=== PATIENT | female | born 1955 | race American Indian/Alaskan Native ===

== ENCOUNTER 2017-02-17 10:36 | Outpatient (CLI) | payer MEDICARE ==
--- NOTE | 2017-02-17 11:10 | Mammography Report ---
Bilateral mammogram: Compared to 01/17/16. CAD study utilized. Findings: Scattered glandular parenchyma bilaterally. No distinct mass or microcalcification. Benign densities right and left breast with benign calcifications. Normal axilla. Impression: Benign findings. Annual followup recommended. BI-RADS CATEGORY: 2 = Benign ACR BI-RADS MAMMOGRAPHIC CODES: 0 = Needs additional imaging evaluation; 1 = Negative; 2 = Benign; 3 = Probably benign; 4 = Suspicious; 5 = Malignant; 6 = Known biopsy-proven malignancy COMMENT: 1. Dense breast tissue, i.e., adenosis, fibrocystic changes, etc., may obscure an underlying neoplasm. 2. Approximately 10% of cancers are not detected with mammography. 3. A negative mammography report should not delay biopsy if a clinically suspicious mass is present. COMMENT: Patient follow-up letters are generated in [employer]. Benign findings. Annual followup recommended.
== END 2017-02-17 10:37 | disposition home or self-care (01) ==
LOC: MAMMO 10:36
PROVIDERS: ATTEND Internal Medicine
DX: Z12.31 Encounter for screening mammogram for malignant neoplasm of breast (principal); I11.0 Hypertensive heart disease with heart failure; I50.9 Heart failure, unspecified; J45.909 Unspecified asthma, uncomplicated; M06.9 Rheumatoid arthritis, unspecified
CPT/HCPCS: 77067; G0202

== ENCOUNTER → 2018-02-24 | Outpatient (CLI) | payer MEDICARE ==
--- NOTE | 2018-02-24 16:30 | Mammography Report ---
BILATERAL DIGITAL SCREENING MAMMOGRAM with CAD: 02/24/18 08:15:00 CLINICAL: Routine screening. COMPARISON:02/17/17 FINDINGS: The breasts are heterogeneously dense, which may obscure small masses. Right asymmetries require additional imaging.No architectural distortion or suspicious calcifications.The left breast is negative. IMPRESSION: Right asymmetries requiring further workup. BI-RADS CATEGORY: 0 -- Additional Imaging Evaluation Required RECOMMENDATION: Recall for right mediolateral , spot magnification CC and MLO views and right breast ultrasound if needed. ACR BI-RADS MAMMOGRAPHIC CODES: 0 = Needs additional imaging evaluation; 1 = Negative; 2 = Benign; 3 = Probably benign; 4 = Suspicious; 5 = Malignant; 6 = Known biopsy-proven malignancy COMMENT: 1. Dense breast tissue, i.e., adenosis, fibrocystic changes, etc., may obscure an underlying neoplasm. 2. Approximately 10% of cancers are not detected with mammography. 3. A negative mammography report should not delay biopsy if a clinically suspicious mass is present. COMMENT: Patient follow-up letters are generated via our [employer] application.
== END | disposition home or self-care (01) ==
LOC: MAMMO 08:15
DX: Z12.31 Encounter for screening mammogram for malignant neoplasm of breast (principal); I10 Essential (primary) hypertension; K21.9 Gastro-esophageal reflux disease without esophagitis; M19.90 Unspecified osteoarthritis, unspecified site; J45.909 Unspecified asthma, uncomplicated; F32.9 Major depressive disorder, single episode, unspecified; Z88.1 Allergy status to other antibiotic agents; Z88.0 Allergy status to penicillin; Z91.013 Allergy to seafood
CPT/HCPCS: 77067

== ENCOUNTER 2018-09-07 09:48 | Inpatient (IN) | payer MEDICARE ==
[2018-09-07 10:46] LABS: Basophils % (Auto) 0.5 % (0.0-1.8); Eosinophils # (Auto) 0.1 K/mm3 (0.0-0.4); Eosinophils % (Auto) 2.7 % (0.0-4.3); Lymphocytes # (Auto) 0.8 K/mm3 (1.2-5.4); Lymphocytes % (Auto) 15.2 % (13.4-35.0); Mean Corpuscular HGB Conc 31 % (30-34); Mean Corpuscular Volume 98 fl (79-97); Monocytes # (Auto) 0.5 K/mm3 (0.0-0.8); Monocytes % (Auto) 8.4 % (0.0-7.3); Platelet Count 288 K/mm3 (140-440); Red Blood Count 1.54 M/mm3 (3.65-5.03); Red Cell Distribution Width 16.3 % (13.2-15.2)
[2018-09-07 10:48] LABS: Hematocrit 15.1 % (30.3-42.9); Hemoglobin 4.7 gm/dl (10.1-14.3)
[2018-09-07 11:00] LABS: Albumin 3.1 g/dL (3.9-5); Calcium 7.9 mg/dL (8.4-10.2)
[2018-09-07] MEDS ORDERED: NACL 0.9% 500 ML 500 ML IV ONE (11:20)
[2018-09-07] MEDS ORDERED: KIONEX PO ONE (11:21)
--- NOTE | 2018-09-07 11:21 | Emergency Department Report ---
ED Medical Clearance HPI - General Chief complaint: Dyspnea/Respdistress Stated complaint: ABNORMAL LAB Time Seen by Provider: 09/07/18 11:12 Source: patient, RN notes reviewed, old records reviewed Mode of arrival: Ambulatory Limitations: No Limitations - History of Present Illness Initial comments: Primary care Dr.: Dr Foote Nephrology: Dr. Finnegan Past medical history: Renal insufficiency, hypertension, chronic anemia, has required blood transfusions in the past this is a 63-year-old female who was sent to the emergency room by her paper processing machine helper (she cannot recall his or her name) for symptomatic anemia, and packed red blood cell transfusion. The patient complains of mild shortness of breath which is painless. There is no hematemesis, there is no bright red blood per rectum. Has chronic lower extremity edema, which is neither new, worsening or different. She denies hematemesis, bright red blood per rectum. She denies DVT, pulmonary embolus risk factors. MD Complaint: medical clearance request Reason for Medical Clearance: laboratory abnormality Place: home Alledged Intoxication: No Compliant with Home Medications: Yes Traumatic Symptoms: denies traumatic injury Associated Symptoms: shortness of breath, other (lower extremity edema) Treatments Prior to Arrival: none Home medications: Home Medications Medication Instructions Recorded Confirmed Last Taken Aspirin [Aspirin BABY CHEW TAB] 81 mg PO DAILY 05/25/13 05/25/13 05/24/13 10:00 81mg Buspirone HCl 15 mg PO DAILY 05/25/13 05/25/13 05/24/13 10:00 15mg Ferrous Sulfate [Iron] 325 mg PO DAILY 05/25/13 05/25/13 05/24/13 10:00 325mg Furosemide 40 mg PO DAILY 05/25/13 05/25/13 05/24/13 10:00 40mg Naproxen 500 mg PO DAILY 05/25/13 05/25/13 05/24/13 10:00 500mg Omeprazole Magnesium [PriLOSEC Otc] 20 mg PO BID 05/25/13 05/25/13 05/24/13 21:00 20mg Potassium Chloride [Klor-Con 10] 10 meq PO DAILY 05/25/13 05/25/13 05/24/13 10:00 10meq Prednisone 5 mg PO DAILY 05/25/13 05/25/13 05/24/13 10:00 5mg Sertraline [Zoloft] 50 mg PO QDAY 05/25/13 05/25/13 05/24/13 10:00 50mg glipiZIDE [glipiZIDE ER] 5 mg PO DAILY 05/25/13 05/25/13 05/23/13 10:00 5mg Previous Rx's Medication Instructions Recorded Last Taken Type Albuterol Sulfate [Proventil HFA] 1 - 2 puff IH Q4H PRN #1 hfa.aer.ad 07/17/13 Unknown Rx Fluticasone Propionate [Flonase] 16 gm NS QDAY #1 spray.susp 07/17/13 Unknown Rx Loratadine [Claritin] 10 mg PO DAILY #20 tablet 07/17/13 Unknown Rx predniSONE [Deltasone] 20 mg PO BID #8 tablet 07/17/13 Unknown Rx Acetaminophen/Codeine [Tylenol #3] 1 tab PO TID PRN #21 tab 05/06/15 Unknown Rx Allergies/Adverse reactions: Allergies Allergy/AdvReac Type Severity Reaction Status Date / Time penicillin G Allergy Intermediate Shortness Verified 05/03/15 08:43 of Breath shellfish derived Allergy Intermediate Shortness Verified 05/03/15 08:43 of Breath hydrocodone AdvReac Headache Verified 05/06/15 06:38 ED Review of Systems ROS: Stated complaint: ABNORMAL LAB Other details as noted in HPI Constitutional: malaise Eyes: denies: vision change ENT: denies: epistaxis Respiratory: shortness of breath. denies: wheezing Cardiovascular: edema. denies: chest pain Gastrointestinal: denies: hematemesis, melena, hematochezia Genitourinary: denies: dysuria Musculoskeletal: denies: back pain Skin: denies: lesions Neurological: weakness Psychiatric: denies: depression ED Past Medical Hx - Past Medical History Hx Hypertension: Yes Hx Congestive Heart Failure: Yes Hx Diabetes: Yes Hx GERD: Yes Hx Arthritis: Yes Hx Asthma: Yes Hx Tuberculosis: Yes Additional medical history: ulcers. sleep apnea. anemia - Surgical History Additional Surgical History: cataract surgery - Social History Smoking Status: Never Smoker Substance Use Type: None - Medications Home Medications: Home Medications Medication Instructions Recorded Confirmed Last Taken Type Aspirin [Aspirin BABY CHEW TAB] 81 mg PO DAILY 05/25/13 05/25/13 05/24/13 10:00 History 81mg Buspirone HCl 15 mg PO DAILY 05/25/13 05/25/13 05/24/13 10:00 History 15mg Ferrous Sulfate [Iron] 325 mg PO DAILY 05/25/13 05/25/13 05/24/13 10:00 History 325mg Furosemide 40 mg PO DAILY 05/25/13 05/25/13 05/24/13 10:00 History 40mg Naproxen 500 mg PO DAILY 05/25/13 05/25/13 05/24/13 10:00 History 500mg Omeprazole Magnesium [PriLOSEC Otc] 20 mg PO BID 05/25/13 05/25/13 05/24/13 21:00 History 20mg Potassium Chloride [Klor-Con 10] 10 meq PO DAILY 05/25/13 05/25/13 05/24/13 10:00 History 10meq Prednisone 5 mg PO DAILY 05/25/13 05/25/13 05/24/13 10:00 History 5mg Sertraline [Zoloft] 50 mg PO QDAY 05/25/13 05/25/13 05/24/13 10:00 History 50mg glipiZIDE [glipiZIDE ER] 5 mg PO DAILY 05/25/13 05/25/13 05/23/13 10:00 History 5mg Albuterol Sulfate [Proventil HFA] 1 - 2 puff IH Q4H PRN #1 hfa.aer.ad 07/17/13 Unknown Rx Fluticasone Propionate [Flonase] 16 gm NS QDAY #1 spray.susp 07/17/13 Unknown Rx Loratadine [Claritin] 10 mg PO DAILY #20 tablet 07/17/13 Unknown Rx predniSONE [Deltasone] 20 mg PO BID #8 tablet 07/17/13 Unknown Rx Acetaminophen/Codeine [Tylenol #3] 1 tab PO TID PRN #21 tab 05/06/15 Unknown Rx ED Physical Exam - General Limitations: No Limitations General appearance: alert, in no apparent distress - Head Head exam: Present: atraumatic, normocephalic - Eye Eye exam: Present: normal appearance, EOMI. Absent: nystagmus - ENT ENT exam: Present: normal exam, normal orophraynx, mucous membranes moist, normal external ear exam - Neck Neck exam: Present: normal inspection, full ROM - Respiratory Respiratory exam: Present: normal lung sounds bilaterally, decreased breath sounds. Absent: respiratory distress, wheezes, rales, rhonchi, stridor - Cardiovascular Cardiovascular Exam: Present: regular rate, normal rhythm, normal heart sounds. Absent: bradycardia, tachycardia, irregular rhythm, systolic murmur, diastolic murmur, rubs, gallop - GI/Abdominal GI/Abdominal exam: Present: soft. Absent: distended, tenderness, guarding, rebound, rigid, pulsatile mass - Extremities Exam Extremities exam: Present: normal inspection, full ROM, pedal edema, other (2+ pulses noted in the bilateral upper, lower extremities. Compartments soft. No long bony tenderness. The pelvis is stable.). Absent: calf tenderness - Back Exam Back exam: Present: normal inspection, full ROM. Absent: tenderness, CVA tenderness (R), paraspinal tenderness, vertebral tenderness - Neurological Exam Neurological exam: Present: alert, oriented X3, CN II-XII intact, normal gait, other (Extraocular movements intact. Tongue midline. No facial droop. Facial sensation intact to light touch in the V1, V2, V3 distribution bilaterally. 5 and 5 strength in 4 extremities.. Sensation is intact to light touch in 4 extremities.). Absent: motor sensory deficit - Psychiatric Psychiatric exam: Present: normal affect, normal mood - Skin Skin exam: Present: warm, dry, intact, normal color. Absent: rash ED Course Vital Signs 09/07/18 09:55 Temperature 97.6 F Pulse Rate 89 Respiratory 16 Rate Blood Pressure 154/102 [Left] O2 Sat by Pulse 100 Oximetry ED Medical Decision Making - Lab Data Result diagrams: 09/07/18 10:20 09/07/18 10:20 Vital Signs 09/07/18 09:55 Temperature 97.6 F Pulse Rate 89 Respiratory 16 Rate Blood Pressure 154/102 [Left] O2 Sat by Pulse 100 Oximetry Lab Results 09/07/18 09/07/18 09/07/18 Range/Units 10:20 10:20 10:20 WBC 5.4 (4.5-11.0) K/mm3 RBC 1.54 L (3.65-5.03) M/mm3 Hgb 4.7 L* (10.1-14.3) gm/dl Hct 15.1 L* (30.3-42.9) % MCV 98 H (79-97) fl MCH 31 (28-32) pg MCHC 31 (30-34) % RDW 16.3 H (13.2-15.2) % Plt Count 288 (140-440) K/mm3 Lymph % (Auto) 15.2 (13.4-35.0) % [place] % (Auto) 8.4 H (0.0-7.3) % Eos % (Auto) 2.7 (0.0-4.3) % Baso % (Auto) 0.5 (0.0-1.8) % Lymph # 0.8 L (1.2-5.4) K/mm3 [place] # 0.5 (0.0-0.8) K/mm3 Eos # 0.1 (0.0-0.4) K/mm3 Baso # 0.0 (0.0-0.1) K/mm3 Seg Neutrophils % 73.2 H (40.0-70.0) % Seg Neutrophils # 3.9 (1.8-7.7) K/mm3 Sodium 140 (137-145) mmol/L Potassium 5.2 H (3.6-5.0) mmol/L Chloride 107.7 H (98-107) mmol/L Carbon Dioxide 20 L (22-30) mmol/L Anion Gap 18 mmol/L BUN 59 H (7-17) mg/dL Creatinine 2.7 H (0.7-1.2) mg/dL Estimated GFR 21 ml/min BUN/Creatinine Ratio 22 % Glucose 111 H (65-100) mg/dL Calcium 7.9 L (8.4-10.2) mg/dL Total Bilirubin 0.20 (0.1-1.2) mg/dL AST 14 (5-40) units/L ALT 8 (7-56) units/L Alkaline Phosphatase 55 (35-129) units/L Total Protein 7.0 (6.3-8.2) g/dL Albumin 3.1 L (3.9-5) g/dL Albumin/Globulin Ratio 0.8 % Blood Type A POSITIVE Antibody Screen Negative Crossmatch See Detail - EKG Data -: EKG Interpreted by Nc EKG shows normal: sinus rhythm Rate: normal - EKG Data When compared to previous EKG there are: previous EKG unavailable 09/07/18 12:19 Sinus, 95 bpm, left axis deviation, QTC prolonged, left anterior fascicular block, low voltage in the anteroseptal leads, motion artifact, abnormal EKG, this EKG is not consistent with ST elevation myocardial infarction. - Radiology Data Radiology results: pending, image reviewed interpreted by me: Pulmonary vascular congestion, enlarged cardiac silhouette, x-ray of the chest negative otherwise for acute disease. - Medical Decision Making Differential diagnosis, including limited to: Symptomatic anemia, chronic renal insufficiency, chronic lower extremity edema Assessment and plan: 63-year-old female with chronic renal insufficiency, who does not have crackles or rales, with chronic lower extremity edema, found to have anemia, hemoglobin of 4, hematocrit of 15. Patient is amenable to packed red blood cell transfusion. Given underlying renal insufficiency, evidence of lower extremity edema, patient will need to be transfused judiciously and slowly, and have fluid, respiratory reassessments, in conjunction with repeat assessments on hemoglobin, hematocrit. Discussed admission to the hospital with the patient, who is amenable to this plan of care, and I have discussed with her primary care doctor, Dr Foote, who is amenable to admitting the patient. ED Disposition Clinical Impression: Symptomatic anemia, CKD (chronic kidney disease) Disposition: DC-09 OP ADMIT IP TO THIS HOSP Is pt being admited?: Yes Condition: Good Referrals: PRIMARY CARE, [Primary Care Provider] - 3-5 Days Critical Care Time: Yes Critical care time in (mins) excluding proc time.: 35 Critical care attestation.: If time is entered above; I have spent that time in minutes in the direct care of this critically ill patient, excluding procedure time.
--- NOTE | 2018-09-07 14:16 | XRay Report ---
FINAL REPORT EXAM: XR CHEST 1V AP HISTORY: dyspnea TECHNIQUE: Chest, portable upright PRIORS: None. FINDINGS: There is mild cardiomegaly. There is no congestion, infiltrate or pleural effusion seen. The lungs ar e clear. There is no pneumothorax. IMPRESSION: Mild cardiomegaly. Otherwise no acute abnormality seen.
[2018-09-07 17:08] LABS: Hemoglobin 5.7 gm/dl (10.1-14.3)
[2018-09-07] MEDS ORDERED: D50W (25GM) Syringe IV PRN (19:20)
--- NOTE | 2018-09-07 19:31 | History and Physical Report ---
History of Present Illness Date of examination: 09/07/18 Date of admission: 09/07/18 12:02 Chief complaint: Shortness of breath Weakness Dizziness History of present illness: 63 year od female patient referred to the ER from her credit resolution representative office on account of low hemoglobin of 4.5 .Patient was referred for packed Red Blood cell Transfusion but patient has complaint of weakness and shortness of breath ongoing for the past few weeks . Patient was hospitalized at [facility] twice in June 2016 on account of low Hemoglobin when she received multiple transfusion with PRBCand had both upper and lower endoscopy done which did not reveal any definite source of GI bleeding , within two weeks of her initial hospitalization , she was readmitted to the same hospital for Hypoglycemia ,patient stated that she got better but developed progressive shortness of breath which started shortly following discharge after the second hospitalization at [facility] where she was evaluated and also treated for hyperkalemia complicating new o nset acute renal failure . Patient is currently on treatment for Type 2 Diabetes , Hypertension and Rheumatoid arthritis as well as chronic anemia and more recently acute on chronic renal failure with hyperkalemia . Patient being evaluated as outpatient for ongoing anemia and hemoglobin was noted to be markedly low at the Director Medical Economics office and now referred for further treatment including PRBC transfusion .Patient's potassium level was also noted to be elevated at 5.8 in the ER and she received treatment with Kayexalate and started on one unit of PRBC . Medications and Allergies Allergies Allergy/AdvReac Type Severity Reaction Status Date / Time penicillin G Allergy Intermediate Shortness Verified 05/03/15 08:43 of Breath shellfish derived Allergy Intermediate Shortness Verified 05/03/15 08:43 of Breath hydrocodone AdvReac Headache Verified 05/06/15 06:38 Home Medications Medication Instructions Recorded Confirmed Last Taken Type Aspirin [Aspirin BABY CHEW TAB] 81 mg PO DAILY 05/25/13 09/07/18 05/24/13 10:00 History 81mg Buspirone HCl 15 mg PO TID 05/25/13 09/07/18 05/24/13 10:00 History 15mg glipiZIDE [glipiZIDE ER] 5 mg PO BID 05/25/13 09/07/18 05/23/13 10:00 History 5mg Carvedilol [Coreg] 3.125 mg PO BID 09/07/18 09/07/18 Unknown History Cyanocobalamin (Vitamin B-12) 500 mcg PO DAILY 09/07/18 09/07/18 Unknown History [Vitamin B-12] Hydroxychloroquine [Plaquenil] 200 mg PO QDAY 09/07/18 09/07/18 Unknown History Omeprazole 40 mg PO DAILY 09/07/18 09/07/18 Unknown History predniSONE [Deltasone] 10 mg PO QDAY 09/07/18 09/07/18 Unknown History Active Meds: Active Medications Carvedilol (Coreg) 3.125 mg PO BID [facility] Dextrose (D50w (25gm) Syringe) 50 ml IV PRN PRN PRN Reason: Hypoglycemia Glipizide (Glucotrol Xl) 5 mg PO BID [facility] Hydroxychloroquine Sulfate (Plaquenil) 200 mg PO QDAY [facility] Miscellaneous Medication (Omeprazole [Omeprazole]) 40 mg PO DAILY [facility] Review of Systems Constitutional: fatigue, weakness Cardiovascular: palpitations, lightheadedness, shortness of breath, dyspnea on exertion, leg edema Respiratory: shortness of breath, dyspnea on exertion Gastrointestinal: excessive gas Musculoskeletal: low back pain, morning stiffness, arthritis Exam - Constitutional Vitals: Temp Pulse Resp BP Pulse Ox 98 F 88 20 127/67 100 09/07/18 13:04 09/07/18 16:16 09/07/18 16:16 09/07/18 16:16 09/07/18 16:16 General appearance: Present: no acute distress - EENT Eyes: Present: PERRL, EOM intact ENT: hearing intact, clear oral mucosa - Neck Neck: Present: supple, normal ROM - Respiratory Respiratory effort: normal Respiratory: bilateral: CTA - Cardiovascular Rhythm: regular Heart Sounds: Present: S1 & S2 - Extremities Extremities: pulses symmetrical (bilateral pitting edema ) Extremity abnormal: edema Peripheral Pulses: within normal limits - Abdominal General gastrointestinal: Present: soft, non-tender, non-distended, normal bowel sounds - Rectal Rectal Exam: deferred - Integumentary Integumentary: Present: warm, dry - Musculoskeletal Musculoskeletal: strength equal bilaterally - Psychiatric Psychiatric: appropriate mood/affect - Neurologic Neurologic: CNII-XII intact, moves all extremities Results - Labs CBC & Chem 7: 09/07/18 16:20 09/07/18 10:20 Labs: Abnormal lab results 0209/07/18 09/07/18 Range/Units 10:20 10:20 10:20 RBC 1.54 L (3.65-5.03) M/mm3 Hgb 4.7 L* (10.1-14.3) gm/dl Hct 15.1 L* (30.3-42.9) % MCV 98 H (79-97) fl RDW 16.3 H (13.2-15.2) % [place] % (Auto) 8.4 H (0.0-7.3) % Lymph # 0.8 L (1.2-5.4) K/mm3 Seg Neutrophils % 73.2 H (40.0-70.0) % Potassium 5.2 H (3.6-5.0) mmol/L Chloride 107.7 H (98-107) mmol/L Carbon Dioxide 20 L (22-30) mmol/L BUN 59 H (7-17) mg/dL Creatinine 2.7 H (0.7-1.2) mg/dL Glucose 111 H (65-100) mg/dL POC Glucose (70-105) Calcium 7.9 L (8.4-10.2) mg/dL Albumin 3.1 L (3.9-5) g/dL Crossmatch See Detail 09/07/18 09/07/18 Range/Units 16:20 16:20 RBC (3.65-5.03) M/mm3 Hgb 5.7 L* (10.1-14.3) gm/dl Hct 18.0 L* (30.3-42.9) % MCV (79-97) fl RDW (13.2-15.2) % [place] % (Auto) (0.0-7.3) % Lymph # (1.2-5.4) K/mm3 Seg Neutrophils % (40.0-70.0) % Potassium (3.6-5.0) mmol/L Chloride (98-107) mmol/L Carbon Dioxide (22-30) mmol/L BUN (7-17) mg/dL Creatinine (0.7-1.2) mg/dL Glucose (65-100) mg/dL POC Glucose 122 H (70-105) Calcium (8.4-10.2) mg/dL Albumin (3.9-5) g/dL Crossmatch Assessment and Plan - Patient Problems (1) Type 2 diabetes mellitus without complications Current Visit: Yes Status: Acute Plan to address problem: Place on sliding scale regular insulin and monitor BS AC and HS (2) Essential (primary) hypertension Current Visit: Yes Status: Acute Plan to address problem: Stable blood pressure on current regimen (3) Rheumatoid arthritis Current Visit: Yes Status: Acute Plan to address problem: On Plaquenil with fair control of symptoms (4) CKD (chronic kidney disease) Current Visit: Yes Status: Acute Plan to address problem: Noted elevated BUN and Creatinine as well as HyperKalemia . Will give Kayexelate and recheck K level in AM (5) Symptomatic anemia Current Visit: Yes Status: Acute Plan to address problem: Patient to receive 2 Units of PRBC tonigh and the recheck level of Hgb in AM to asess the need for additional unit . Will obtain records from [facility] to review previous workup during her last hospitalization at that facility
[2018-09-07] MEDS ORDERED: KIONEX PO NR (20:00)
[2018-09-07] MEDS ORDERED: NACL 0.9% 250ML 250 ML ONE (20:46)
[2018-09-07] MEDS: COREG PO SCH (21:32)
[2018-09-07] MEDS ORDERED: GLUCOTROL XL PO SCH (22:00)
[2018-09-08 06:05] LABS: Basophils % (Auto) 0.4 % (0.0-1.8); Eosinophils # (Auto) 0.1 K/mm3 (0.0-0.4); Eosinophils % (Auto) 1.4 % (0.0-4.3); Lymphocytes # (Auto) 0.9 K/mm3 (1.2-5.4); Lymphocytes % (Auto) 15.6 % (13.4-35.0); Mean Corpuscular HGB Conc 33 % (30-34); Mean Corpuscular Volume 94 fl (79-97); Monocytes # (Auto) 0.4 K/mm3 (0.0-0.8); Monocytes % (Auto) 7.7 % (0.0-7.3); Platelet Count 257 K/mm3 (140-440); Red Blood Count 1.95 M/mm3 (3.65-5.03); Red Cell Distribution Width 15.1 % (13.2-15.2)
[2018-09-08 06:14] LABS: Hematocrit 18.3 % (30.3-42.9); Hemoglobin 5.9 gm/dl (10.1-14.3)
[2018-09-08 06:20] LABS: Calcium 7.5 mg/dL (8.4-10.2)
[2018-09-08] MEDS ORDERED: LASIX IV ONE (06:23)
[2018-09-08] MEDS ORDERED: NACL 0.9% 500 ML 500 ML IV ONE (06:26)
--- NOTE | 2018-09-08 08:28 | Progress Note ---
Assessment and Plan - Patient Problems (1) Type 2 diabetes mellitus without complications Current Visit: Yes Status: Acute Plan to address problem: Place on sliding scale regular insulin and monitor BS AC and HS (2) Essential (primary) hypertension Current Visit: Yes Status: Acute Plan to address problem: Stable blood pressure on current regimen (3) Rheumatoid arthritis Current Visit: Yes Status: Acute Plan to address problem: On Plaquenil with fair control of symptoms (4) CKD (chronic kidney disease) Current Visit: Yes Status: Acute Qualifiers: Chronic kidney disease stage: stage 3 (moderate) Qualified Code(s): N18.3 - Chronic kidney disease, stage 3 (moderate) Plan to address problem: Noted elevated BUN and Creatinine as well as HyperKalemia . Patient received Kayexalate yesterday and K level now 4.6 , will continue to monitor K level .Patient BUN creatinine level stable and Urinary Output is good . (5) Symptomatic anemia Current Visit: Yes Status: Acute Plan to address problem: Hemoglobin post transfusion of 2 Units of PRBC still 5.9 , will transfuse 2 additional Units of PRBC tosay and recheck Hgb post transfusion Subjective Date of service: 09/08/18 Principal diagnosis: Anemia ,Acute renal Failure ,Hyperkalemia Interval history: Patient feels better , less short of breath ,denied chest pain .Denied any active bleeding ,no fever reported by nursing staff . Objective - Constitutional Vitals: Vital Signs - 12hr 09/07/18 09/07/18 09/07/18 20:45 21:19 21:32 Temperature 97.7 F 97.7 F Pulse Rate 104 H 105 H Respiratory 18 Rate Blood Pressure 140/70 140/70 O2 Sat by Pulse 99 Oximetry 09/07/18 09/07/18 09/07/18 21:34 22:04 22:34 Temperature 97.8 F 98.3 F 98.9 F Pulse Rate 108 H 94 H 89 Respiratory 17 18 17 Rate Blood Pressure 116/56 115/49 122/56 O2 Sat by Pulse 99 98 99 Oximetry 09/07/18 09/07/18 09/08/18 23:04 23:34 00:04 Temperature 97.7 F 97.8 F 98.7 F Pulse Rate 85 84 82 Respiratory 17 18 18 Rate Blood Pressure 132/54 134/56 121/56 O2 Sat by Pulse 100 99 96 Oximetry 09/08/18 09/08/18 09/08/18 00:34 01:23 04:36 Temperature 97.8 F 98.3 F Pulse Rate 82 83 84 Respiratory 16 16 24 Rate Blood Pressure 124/54 123/68 O2 Sat by Pulse 98 99 100 Oximetry General appearance: Present: no acute distress - EENT Eyes: PERRL, EOM intact - Neck Neck: supple, normal ROM - Respiratory Respiratory: bilateral: CTA - Cardiovascular Heart Sounds: Present: S1 & S2 Extremities: no ischemia, pulses symmetrical Extremity abnormal: edema - Gastrointestinal General gastrointestinal: Present: soft, non-tender, non-distended, normal bowel sounds Rectal Exam: deferred - Integumentary Integumentary: clear, warm, dry - Musculoskeletal Musculoskeletal: strength equal bilaterally - Neurologic Neurologic: CNII-XII intact - Psychiatric Psychiatric: appropriate mood/affect - Labs CBC & Chem 7: 09/08/18 05:35 09/08/18 05:35 Labs: Abnormal lab results 09/07/18 09/07/18 09/07/18 Range/Units 10:20 10:20 10:20 RBC 1.54 L (3.65-5.03) M/mm3 Hgb 4.7 L* (10.1-14.3) gm/dl Hct 15.1 L* (30.3-42.9) % MCV 98 H (79-97) fl RDW 16.3 H (13.2-15.2) % [place] % (Auto) 8.4 H (0.0-7.3) % Lymph # 0.8 L (1.2-5.4) K/mm3 Seg Neutrophils % 73.2 H (40.0-70.0) % Potassium 5.2 H (3.6-5.0) mmol/L Chloride 107.7 H (98-107) mmol/L Carbon Dioxide 20 L (22-30) mmol/L BUN 59 H (7-17) mg/dL Creatinine 2.7 H (0.7-1.2) mg/dL Glucose 111 H (65-100) mg/dL POC Glucose (70-105) Calcium 7.9 L (8.4-10.2) mg/dL Albumin 3.1 L (3.9-5) g/dL Crossmatch See Detail 09/07/18 09/07/18 09/08/18 Range/Units 16:20 16:20 05:35 RBC 1.95 L (3.65-5.03) M/mm3 Hgb 5.7 L* 5.9 L* (10.1-14.3) gm/dl Hct 18.0 L* 18.3 L* (30.3-42.9) % MCV (79-97) fl RDW (13.2-15.2) % [place] % (Auto) 7.7 H (0.0-7.3) % Lymph # 0.9 L (1.2-5.4) K/mm3 Seg Neutrophils % 74.9 H (40.0-70.0) % Potassium (3.6-5.0) mmol/L Chloride (98-107) mmol/L Carbon Dioxide (22-30) mmol/L BUN (7-17) mg/dL Creatinine (0.7-1.2) mg/dL Glucose (65-100) mg/dL POC Glucose 122 H (70-105) Calcium (8.4-10.2) mg/dL Albumin (3.9-5) g/dL Crossmatch 09/08/18 09/08/18 Range/Units 05:35 07:51 RBC (3.65-5.03) M/mm3 Hgb (10.1-14.3) gm/dl Hct (30.3-42.9) % MCV (79-97) fl RDW (13.2-15.2) % [place] % (Auto) (0.0-7.3) % Lymph # (1.2-5.4) K/mm3 Seg Neutrophils % (40.0-70.0) % Potassium (3.6-5.0) mmol/L Chloride 110.4 H (98-107) mmol/L Carbon Dioxide 21 L (22-30) mmol/L BUN 53 H (7-17) mg/dL Creatinine 2.5 H (0.7-1.2) mg/dL Glucose (65-100) mg/dL POC Glucose 61 L (70-105) Calcium 7.5 L (8.4-10.2) mg/dL Albumin (3.9-5) g/dL Crossmatch
--- NOTE | 2018-09-08 09:39 | Consultation ---
History of Present Illness - History of Present Illness Thank you for the consultation ! Patient was evaluated today My assessment and plan are as follows; Advanced renal failure in a patient who is 63-year-old with multiple comorbidi ties, progressive decline in renal function, patient is in need for initiation of renal replacement therapy without which are prognosis is very poor and her mortality risk is very high patient was last seen in my office on 08/25/2018 and we had discussed about initiation of renal replacement therapy when patient is symptomatic she has already been through kidney smart class and has been followed by hematology in the outpatient setting Patient has also tested positive for lupus and has been seen by rheumatology in the past will repeat serology and follow-up Severe anemia requiring packed red blood cell transfusion patient needs initiation of renal placement therapy and correction of renal failure, uremia Metabolic acidosis: Mild to monitor and follow Hyperkalemia: Mild, should be treated medically and will follow-up Admitted with severe anemia requiring packed red blood cell transfusion, outpatient hemoglobin was 4.5 Her anemia appears to be multifactorial in etiology: Should be seen by hematology as well as GI during this admission packed red blood cell transfusion:? Old Plaquenil for now has some time it could be marrow toxic, increase prednisone to 20 mg once a day , patient has been diagnosed with Sjogren syndrome, she has very poor understanding of her rheumatological issues, Patient has received multiple transfusion over time Multiple qualities underlying including diabetes mellitus type 2, hypertension, chronic anemia patient is currently being followed by hematology She has been adequately counseled and educated regarding multiple renal related issues She has also been educated about the need to initiate renal replacement therapy as well. She is in agreement with that, we'll proceed with permacath placement and initiation of renal placement therapy in outpatient dialysis facility that needs to be established per patient's choice Patient and her family was adequately counseled and educated regarding multiple renal related issues. Renal prognosis remains guarded at this time All renal related questions were answered and simple Chinese pertinent lab studi es as well as imaging results were also discussed with patient We will continue to follow and make recommendations from renal standpoint. Thank you for the consultation Author: Jorge Espinal M.D. [facility], [address] [place] [address] Tel; [phone] Source of information: From patient, as well as old record Patient is not a reliable historian History of present illness Patient is 63-year-old -Chilean female who has known history of multiple comorbidities including diabetes hypertension and obesity and chronic kidney disease which has been progressive over time patient has been admitted here with severe anemia hemoglobin less than 5, she does have a history of positive ERICA, and has been seen by Dr. Espinal. Patient has been diagnosed with stage IV chronic kidney disease in the outpatient setting and is followed in our office She has also been through kidney [employer], and is aware of the declining renal function She is currently being followed by her call taker Her daughter wants to take her to [place] for a second opinion Past medical history significant for Chronic kidney disease Anemia Positive lupus serology; diagnosed with Sjogren syndrome Chronic edema Poor eating habits Obesity Chronic kidney disease, progressive noncompliant patient Current allergies: Penicillin and shellfish hydrocodone Social history, family history, reviewed from discharge Home medication present medication: Reviewed from the chart Review of systems generalized weakness fatigue shortness of breath noted to be severely anemic was sent by the call taker to the hospital No history of any GI bleed per patient All other review of system negative Physical examination Vitals: Reviewed General: No acute distress HEENT: Oral mucosa moist no pallor or icterus Neck: Supple without any JVD thyromegaly or nodular mass Chest: Clear to auscultation Heart: Regular rate and rhythm S1-S2 heard no S3-S4 Abdomen: Soft nontender, bowel sounds present no renal bruit no suprapubic masses no CVA tenderness noted morbidly obese abdomen limited examination Extremity: 2 plus edema dry skin no peripheral cyanosis Endocrine: Thyroid not enlarged Psychiatric: No agitation and aggression noted Musculoskeletal: No joint effusion noted Labs and x-rays: Reviewed from this admission Medications and Allergies Allergies Allergy/AdvReac Type Severity Reaction Status Date / Time penicillin G Allergy Intermediate Shortness Verified 05/03/15 08:43 of Breath shellfish derived Allergy Intermediate Shortness Verified 05/03/15 08:43 of Breath hydrocodone AdvReac Headache Verified 05/06/15 06:38 Home Medications Medication Instructions Recorded Confirmed Last Taken Type Aspirin [Aspirin BABY CHEW TAB] 81 mg PO DAILY 05/25/13 09/07/18 05/24/13 10:00 History 81mg Buspirone HCl 15 mg PO TID 05/25/13 09/07/18 05/24/13 10:00 History 15mg glipiZIDE [glipiZIDE ER] 5 mg PO BID 05/25/13 09/07/18 05/23/13 10:00 History 5mg Carvedilol [Coreg] 3.125 mg PO BID 09/07/18 09/07/18 Unknown History Cyanocobalamin (Vitamin B-12) 500 mcg PO DAILY 09/07/18 09/07/18 Unknown History [Vitamin B-12] Hydroxychloroquine [Plaquenil] 200 mg PO QDAY 09/07/18 09/07/18 Unknown History Omeprazole 40 mg PO DAILY 09/07/18 09/07/18 Unknown History predniSONE [Deltasone] 10 mg PO QDAY 09/07/18 09/07/18 Unknown History Active Meds: Active Medications Carvedilol (Coreg) 3.125 mg PO BID [facility] Last Admin: 09/07/18 21:32 Dose: 3.125 mg Documented by: Dextrose (D50w (25gm) Syringe) 50 ml IV PRN PRN PRN Reason: Hypoglycemia Glipizide (Glucotrol Xl) 5 mg PO BIDDIAB [facility] Last Admin: 09/07/18 21:32 Dose: 5 mg Documented by: Hydroxychloroquine Sulfate (Plaquenil) 200 mg PO QDAY [facility] Sodium Chloride (Nacl 0.9% 500 Ml) 500 mls @ 0 mls/hr IV ONCE NR Stop: 09/08/18 14:00 Pantoprazole Sodium (Protonix) 40 mg PO DAILY [facility] Exam - Vital Signs Vital signs: Vital Signs Temp Pulse Resp BP Pulse Ox 97.6 F 89 16 154/102 100 09/07/18 09:55 09/07/18 09:55 09/07/18 09:55 09/07/18 09:55 09/07/18 09:55 Results - Lab Results 09/08/18 05:35 09/08/18 05:35 Most recent lab results Calcium 7.5 mg/dL (8.4-10.2) L 09/08/18 05:35
[2018-09-08] MEDS ORDERED: NON-FORMULARY (Omeprazole [Omeprazole] 40 MG) PO SCH (10:00)
[2018-09-08] MEDS ORDERED: NACL 0.9% 500 ML 500 ML IV NR (10:00)
[2018-09-08] MEDS ORDERED: LASIX IV NR (11:00)
[2018-09-08] MEDS: COREG PO SCH ×2 (11:47→22:15)
[2018-09-08] MEDS: PLAQUENIL PO SCH (11:47)
[2018-09-08] MEDS: PROTONIX PO SCH (11:47)
[2018-09-08 14:40] LABS: Iron 17 ug/dL (37-170); Total Iron Binding Capacity 251 mcg/dL (250-450)
[2018-09-09 04:38] LABS: Basophils % (Auto) 0.2 % (0.0-1.8); Eosinophils # (Auto) 0.1 K/mm3 (0.0-0.4); Hematocrit 23.5 % (30.3-42.9); Hemoglobin 7.7 gm/dl (10.1-14.3); Lymphocytes # (Auto) 0.7 K/mm3 (1.2-5.4); Lymphocytes % (Auto) 13.2 % (13.4-35.0); Mean Corpuscular HGB Conc 33 % (30-34); Mean Corpuscular Volume 94 fl (79-97); Monocytes # (Auto) 0.4 K/mm3 (0.0-0.8); Monocytes % (Auto) 7.5 % (0.0-7.3); Platelet Count 255 K/mm3 (140-440); Red Blood Count 2.51 M/mm3 (3.65-5.03)
[2018-09-09 05:02] LABS: Albumin 2.6 g/dL (3.9-5); Calcium 7.7 mg/dL (8.4-10.2)
--- NOTE | 2018-09-09 07:23 | Event Note ---
Date: 09/08/18 seen on 09/08 [id number]
--- NOTE | 2018-09-09 07:26 | Hem/Onc Progress Note ---
Assessment and Plan anemia CKD DM HTN low iron low folate CKD 1. Normocytic anemia with low iron profile. 2. Blood transfusion given. 3. The patient would need IV iron outpatient versus inpatient. 4. Nephrology team has seen the patient for chronic kidney disease. 5. After iron supplementation has been done, we will look into erythropoietin support. 6. Low folate, we will replace. 7. History of diabetes. 8. History of hypertension. 9. History of ERICA positive systemic lupus erythematosus/Sjogren syndrome. 10. I will discuss with primary care regarding evaluation for iron deficiency. IV iron - folic acid - Patient Problems (1) Symptomatic anemia Status: Chronic Subjective Date of service: 09/09/18 Principal diagnosis: anemia Interval history: s/p PRBC Objective - Constitutional Vitals: Last Vital Signs Temp 98.5 F 09/09/18 04:53 Pulse 84 09/09/18 04:53 Resp 20 09/09/18 04:53 BP 145/71 09/09/18 04:53 Pulse Ox 99 09/09/18 04:53 Pain Intensity (0-10): denies any pain General appearance: no acute distress Performance status: 2- selfcare, ambulatory - EENT Eyes: EOM intact ENT: clear oral mucosa Lymph node exam: negative cervical - Neck Neck: normal ROM - Respiratory Respiratory effort: Positive: normal Respiratory: bilateral: CTA - Cardiovascular Heart Sounds: Present: S1 & S2 Extremities: No edema - Gastrointestinal General gastrointestinal: Present: soft, non-tender Rectal Exam: deferred - Genitourinary Female genitourinary: Present: deferred - Integumentary Integumentary: warm - Musculoskeletal Musculoskeletal: strength equal bilaterally - Neurologic Neurologic: moves all extremities - Psychiatric Psychiatric: appropriate mood/affect - Labs Lab Results: Laboratory Results - last 24 hr 09/07/18 09/08/18 09/08/18 10:20 05:03 07:51 WBC RBC Hgb Hct MCV MCH MCHC RDW Plt Count Lymph % (Auto) Posey % (Auto) Eos % (Auto) Baso % (Auto) Lymph # Posey # Eos # Baso # Seg Neutrophils % Seg Neutrophils # Sodium Potassium Chloride Carbon Dioxide Anion Gap BUN Creatinine Estimated GFR BUN/Creatinine Ratio Glucose POC Glucose 61 L Calcium Iron 17 L TIBC 251 Ferritin Total Bilirubin AST ALT Alkaline Phosphatase Total Protein Albumin Albumin/Globulin Ratio Vitamin B12 Folate Blood Type A POSITIVE Antibody Screen Negative Crossmatch See Detail 09/08/18 09/08/18 09/08/18 08:37 11:54 17:02 WBC RBC Hgb Hct MCV MCH MCHC RDW Plt Count Lymph % (Auto) Posey % (Auto) Eos % (Auto) Baso % (Auto) Lymph # Posey # Eos # Baso # Seg Neutrophils % Seg Neutrophils # Sodium Potassium Chloride Carbon Dioxide Anion Gap BUN Creatinine Estimated GFR BUN/Creatinine Ratio Glucose POC Glucose 109 H 98 73 Calcium Iron TIBC Ferritin Total Bilirubin AST ALT Alkaline Phosphatase Total Protein Albumin Albumin/Globulin Ratio Vitamin B12 Folate Blood Type Antibody Screen Crossmatch 09/08/18 09/08/18 09/08/18 17:58 18:02 18:02 WBC RBC Hgb Hct MCV MCH MCHC RDW Plt Count Lymph % (Auto) Posey % (Auto) Eos % (Auto) Baso % (Auto) Lymph # Posey # Eos # Baso # Seg Neutrophils % Seg Neutrophils # Sodium Potassium Chloride Carbon Dioxide Anion Gap BUN Creatinine Estimated GFR BUN/Creatinine Ratio Glucose POC Glucose Calcium Iron TIBC Ferritin 25.5 Total Bilirubin AST ALT Alkaline Phosphatase Total Protein Albumin Albumin/Globulin Ratio Vitamin B12 355.4 Folate 6.08 L Blood Type Antibody Screen Crossmatch 09/09/18 09/09/18 04:22 04:22 WBC 5.2 RBC 2.51 L Hgb 7.7 L Hct 23.5 L MCV 94 MCH 31 MCHC 33 RDW 17.0 H Plt Count 255 Lymph % (Auto) 13.2 L Posey % (Auto) 7.5 H Eos % (Auto) 2.0 Baso % (Auto) 0.2 Lymph # 0.7 L Posey # 0.4 Eos # 0.1 Baso # 0.0 Seg Neutrophils % 77.1 H Seg Neutrophils # 4.0 Sodium 139 Potassium 4.4 Chloride 109.9 H Carbon Dioxide 20 L Anion Gap 14 BUN 44 H Creatinine 2.2 H Estimated GFR 27 BUN/Creatinine Ratio 20 Glucose 88 POC Glucose Calcium 7.7 L Iron TIBC Ferritin Total Bilirubin 0.40 AST 12 ALT 7 Alkaline Phosphatase 51 Total Protein 6.1 L Albumin 2.6 L Albumin/Globulin Ratio 0.7 Vitamin B12 Folate Blood Type Antibody Screen Crossmatch Medications & Allergies - Medications Allergies/Adverse Reactions: Allergies penicillin G Allergy (Intermediate, Verified 05/03/15 08:43) Shortness of Breath shellfish derived Allergy (Intermediate, Verified 05/03/15 08:43) Shortness of Breath hydrocodone Adverse Reaction (Verified 05/06/15 06:38) Headache Home Medications: Home Medications Medication Instructions Recorded Confirmed Last Taken Type Aspirin [Aspirin BABY CHEW TAB] 81 mg PO DAILY 05/25/13 09/07/18 05/24/13 10:00 History 81mg Buspirone HCl 15 mg PO TID 05/25/13 09/07/18 05/24/13 10:00 History 15mg glipiZIDE [glipiZIDE ER] 5 mg PO BID 05/25/13 09/07/18 05/23/13 10:00 History 5mg Carvedilol [Coreg] 3.125 mg PO BID 09/07/18 09/07/18 Unknown History Cyanocobalamin (Vitamin B-12) 500 mcg PO DAILY 09/07/18 09/07/18 Unknown History [Vitamin B-12] Hydroxychloroquine [Plaquenil] 200 mg PO QDAY 09/07/18 09/07/18 Unknown History Omeprazole 40 mg PO DAILY 09/07/18 09/07/18 Unknown History predniSONE [Deltasone] 10 mg PO QDAY 09/07/18 09/07/18 Unknown History Active Medications: Generic Name Dose Route Start Last Admin Trade Name Freq PRN Reason Stop Dose Admin Carvedilol 3.125 mg 09/07/18 22:00 09/08/18 22:15 Coreg PO 3.125 mg BID [facility] Administration Dextrose 50 ml 09/07/18 19:20 D50w (25gm) Syringe IV PRN PRN Hypoglycemia Hydroxychloroquine Sulfate 200 mg 09/08/18 10:00 09/08/18 11:47 Plaquenil PO 200 mg QDAY [facility] Administration Pantoprazole Sodium 40 mg 09/08/18 10:00 09/08/18 11:47 Protonix PO 40 mg DAILY [facility] Administration
--- NOTE | 2018-09-09 08:36 | Discharge Summary ---
Providers - Providers Date of Admission: 09/08/18 11:53 Date of discharge: 09/09/18 Attending physician: CATY ARMENTA 09/07/18 11:20 Consult to Physician [CONS] Urgent Comment: left mess. voice mail/ adela Consulting Provider: DEDE GA Physician Instructions: Reason For Exam: anemia 09/07/18 19:33 Consult to Physician [CONS] Routine Comment: called answ. service/adela Consulting Provider: NNEKA MONET Physician Instructions: Reason For Exam: acute on chronic renal failure with Hyperkalemia 09/08/18 08:36 Consult to Physician [CONS] Routine Comment: Consulting Provider: DEDE GA Physician Instructions: Reason For Exam: Symptomatic severe anemia Primary care physician: HAND GRINDER Hospitalization Reason for admission: Symptomatic anemia ,renal failure with hyperkalemia Condition: Good Hospital course: 63 year old female admitted with shortness of breath and weakness ,patient referred to the ER by the tire mechanic Dr Ga after Hgb in office was found to be 4.5 . Patient was also noted with hperkalemia secondary to acute on chronic renal failure . Patient wa transfused with total of 4 units of PRBC and Hgb now is 7.7 Patient was evaluated by Duty Officer and advsed on the need for initiation of renal replacement therapy but patient stated taht she wants to seek a second opinion on this first before starting and she has made appointment at [facility] for evaluation . Patient feels better and less short of breath and has a followup appointment with Calliope Player Dr Ga today for iron therapy and subsequent followup . Patient will be discharged today to followup as outpatient and with Duty Officer and Calliope Player .Patient already had extensive GI workup and upper and lower GI evaluation at [facility] during prior admission in June 2018 . Disposition: - TO HOME OR SELFCARE - Discharge Diagnoses (1) Type 2 diabetes mellitus without complications Status: Chronic Comment: Patient advised to hold Glyburide in view of intermittent hypoglycemia in face of worsening renal function ,to continue managing her diabetes with diet alone at this point (2) Essential (primary) hypertension Status: Chronic (3) Rheumatoid arthritis Status: Chronic (4) CKD (chronic kidney disease) Status: Chronic Qualifiers: Chronic kidney disease stage: stage 3 (moderate) Qualified Code(s): N18.3 - Chronic kidney disease, stage 3 (moderate) (5) Symptomatic anemia Status: Chronic Core Measure Documentation - Palliative Care Palliative Care/ Comfort Measures: Not Applicable - Core Measures Any of the following diagnoses?: none Exam - Constitutional Vitals: Temp Pulse Resp BP Pulse Ox 98.5 F 84 20 145/71 99 09/09/18 04:53 09/09/18 04:53 09/09/18 04:53 09/09/18 04:53 09/09/18 04:53 General appearance: Present: no acute distress - EENT Eyes: Present: PERRL ENT: hearing intact - Neck Neck: Present: supple, normal ROM - Respiratory Respiratory: bilateral: CTA - Cardiovascular Rhythm: regular Heart Sounds: Present: S1 & S2 - Extremities Extremities: no ischemia, pulses intact, pulses symmetrical Extremity abnormal: edema Peripheral Pulses: within normal limits - Abdominal General gastrointestinal: Present: soft, non-tender, non-distended, normal bowel sounds - Integumentary Integumentary: Present: clear, warm, dry - Musculoskeletal Musculoskeletal: strength equal bilaterally - Psychiatric Psychiatric: appropriate mood/affect - Neurologic Neurologic: CNII-XII intact, moves all extremities Plan Activity: no restrictions Weight Bearing Status: Full Weight Bearing Diet: diabetic, renal Follow up with: PRIMARY CARE, [Primary Care Provider] - 3-5 Days NNEKA MONET MD [Staff Physician] - 7 Days DEDE GA MD [Staff Physician] - 7 Days
--- NOTE | 2018-09-09 08:50 | Progress Note ---
Subjective Principal diagnosis: anemia Interval history: Patient was seen today for follow-up on multiple renal related issues Events of this hospitalization noted Patient is being discharged today Renal function is better Patient denies having any chest pain pressure or shortness of breath Vitals labs intake output medications were reviewed Social history: Reviewed Allergies: Reviewed Family history: Reviewed Physical examination HEENT: Oral mucosa moist no pallor or icterus Neck: Supple no JVD Chest: Clear to auscultation anteriorly CVS: Regular rate and rhythm S1 and S2 heard Abdomen: Soft nontender no suprapubic masses no organomegaly appreciable Extremity: Dry skin less than 1+ peripheral edema Musculoskeletal: No joint effusion noted in knees and ankle Neurological: Alert awake Dermatology: No petechial rashes Psychiatry: No evidence of any agitation and aggression noted Assessment and plan Chronic kidney disease: There is no emergent indication for renal replacement therapy today, renal function appears to be improving to monitor and follow Metabolic acidosis: Patient will require sodium bicarbonate 3 tablets twice a day Explained the patient that she does need to follow-up proper diet for chronic kidney disease which has been an issue in the outpatient setting, Creatinine is currently better at 2.2 estimated GFR around 27 Patient does have history of chronic kidney disease and was admitted with hyperkalemia, metabolic acidosis, severe anemia Patient refuses to initiate renal replacement therapy during this admission Positive ERICA: Patient does have history of Sjogren's syndrome he has very poor understanding of her rheumatological diagnosis Anemia: Unexplained etiology needing packed red blood cell transfusion, patient needs to have a hematology evaluation, rule out any autoimmune related anemia status post hematology evaluation she has history of iron deficiency folic acid deficiency will need to follow-up with them She has received packed red blood cell transfusion Renal prognosis remains very guarded at this time, she will need a follow-up in the office upon discharge Patient must follow-up proper diet plan for chronic kidney disease She was adequately counseled and educated regarding all the renal related issues She was advised to follow-up with her primary care physician upon discharge Patient was adequately counseled and educated regarding multiple renal related i ssues Pertinent lab findings were discussed with patient, patient does exhibit good understanding of renal issues We'll continue to follow and make recommendation from renal standpoint Objective - Vital Signs Vital signs: Vital Signs - 12hr 09/08/18 09/08/18 09/08/18 22:15 22:22 22:44 Temperature 98.9 F 97.9 F Pulse Rate 89 80 Respiratory 20 20 Rate Blood Pressure 147/82 O2 Sat by Pulse 96 99 100 Oximetry 09/09/18 04:53 Temperature 98.5 F Pulse Rate 84 Respiratory 20 Rate Blood Pressure 145/71 O2 Sat by Pulse 99 Oximetry - Lab 09/09/18 04:22 09/09/18 04:22 Most recent lab results Calcium 7.7 mg/dL (8.4-10.2) L 09/09/18 04:22 Medications & Allergies - Medications Allergies/Adverse Reactions: Allergies penicillin G Allergy (Intermediate, Verified 05/03/15 08:43) Shortness of Breath shellfish derived Allergy (Intermediate, Verified 05/03/15 08:43) Shortness of Breath hydrocodone Adverse Reaction (Verified 05/06/15 06:38) Headache Home Medications: Home Medications Medication Instructions Recorded Confirmed Last Taken Type Aspirin [Aspirin BABY CHEW TAB] 81 mg PO DAILY 05/25/13 09/07/18 05/24/13 10:00 History 81mg Buspirone HCl 15 mg PO TID 05/25/13 09/07/18 05/24/13 10:00 History 15mg glipiZIDE [glipiZIDE ER] 5 mg PO BID 05/25/13 09/07/18 05/23/13 10:00 History 5mg Carvedilol [Coreg] 3.125 mg PO BID 09/07/18 09/07/18 Unknown History Cyanocobalamin (Vitamin B-12) 500 mcg PO DAILY 09/07/18 09/07/18 Unknown History [Vitamin B-12] Hydroxychloroquine [Plaquenil] 200 mg PO QDAY 09/07/18 09/07/18 Unknown History Omeprazole 40 mg PO DAILY 09/07/18 09/07/18 Unknown History predniSONE [Deltasone] 10 mg PO QDAY 09/07/18 09/07/18 Unknown History Active Medications: Generic Name Dose Route Start Last Admin Trade Name Freq PRN Reason Stop Dose Admin Carvedilol 3.125 mg 09/07/18 22:00 09/08/18 22:15 Coreg PO 3.125 mg BID [facility] Administration Dextrose 50 ml 09/07/18 19:20 D50w (25gm) Syringe IV PRN PRN Hypoglycemia Folic Acid 1 mg 09/09/18 10:00 Folvite PO QDAY VENECIA Hydroxychloroquine Sulfate 200 mg 09/08/18 10:00 09/08/18 11:47 Plaquenil PO 200 mg QDAY VENECIA Administration Ferric Sodium Gluconate 110 mls @ 100 mls/hr 09/09/18 10:00 Complex 125 mg/ Sodium IV 09/09/18 11:05 Chloride ONCE ONE Miscellaneous Medication 10 mg 09/09/18 10:00 Prednisone [Deltasone] PO QDAY [facility]EC[facility] Multivitamins 1 each 09/09/18 10:00 Theragran Tab PO QDAY VENECIA Pantoprazole Sodium 40 mg 09/08/18 10:00 09/08/18 11:47 Protonix PO 40 mg DAILY [facility]ECIA Administration
[2018-09-09] MEDS ORDERED: DELTASONE PO SCH (10:00)
[2018-09-09] MEDS ORDERED: THERAGRAN Tab PO SCH (10:00)
[2018-09-09] MEDS ORDERED: FOLVITE PO SCH (10:00)
[2018-09-09] MEDS ORDERED: PREDNISONE 10 MG PO SCH (10:00)
[2018-09-09] MEDS ORDERED: FERRLECIT 125 MG in NACL 0.9% 100 ML IV ONE (10:00)
[2018-09-09] MEDS: PLAQUENIL PO SCH (10:12)
[2018-09-09] MEDS: PROTONIX PO SCH (10:12)
[2018-09-09] MEDS: COREG PO SCH (10:25)
[2018-09-09 13:04] VITALS: BP 138/71
--- NOTE | 2018-09-09 19:21 | Consultation ---
REFERRING PHYSICIAN: Dr. Foote. REASON FOR CONSULTATION: Severe anemia. HISTORY OF PRESENT ILLNESS: I saw the patient, a 63-year-old from the medical floor. The patient had come to the clinic the day before, hemoglobin was 4.4. I had sent her to hospital. She had been seen by my colleague. The patient said there was a plan to start erythropoietin support, but the lab test also suggested iron deficiency. The patient has past history of lupus and had seen title processor in the past. There is also mention of Sjogren syndrome. The patient also has CKD, anemia, obesity. Main complaint included fatigue. She is getting transfusion support. Denies any bleeding, but there is a plan for GI evaluation. At this time, no headache, no visual disturbances. No ear discharge, no chest pain or palpitations. History of shortness of breath on exertion present. No vomiting, no diarrhea, no dysuria, no seizures, no loss of consciousness. PAST MEDICAL HISTORY: As above. The patient has had GI evaluation. She was admitted to [facility] in 06/2016 as per the information. The patient also has diabetes, hypertension. ALLERGIES: PENICILLIN, SHELLFISH. PAST SURGICAL HISTORY: Cataract surgery. SOCIAL HISTORY: Nonsmoker. PHYSICAL EXAMINATION: VITAL SIGNS: Temperature 98, pulse 89, respirations 20, BP 147/82. HEENT: Pallor present. No icterus. NECK: No neck lymph nodes. HEART: S1, S2. LUNGS: Clear to auscultation. ABDOMEN: Soft. EXTREMITIES: No calf tenderness. NEUROLOGIC: Alert, awake. LABORATORY DATA: White cell 5, hemoglobin 4.7, MCV 98, platelet 288. Creatinine 2.7, serum iron 17, ferritin 25, B12 of 355, folate 6. RADIOLOGY: Chest x-ray was done. ASSESSMENT AND PLAN: 1. Normocytic anemia with low iron profile. 2. Blood transfusion given. 3. The patient would need IV iron outpatient versus inpatient. 4. Nephrology team has seen the patient for chronic kidney disease. 5. After iron supplementation has been done, we will look into erythropoietin support. 6. Low folate, we will replace. 7. History of diabetes. 8. History of hypertension. 9. History of ERICA positive systemic lupus erythematosus/Sjogren syndrome. 10. I will discuss with primary care regarding evaluation for iron deficiency. JOB# [id number] JUDITH/KRYSTLE
--- NOTE | 2018-09-15 14:53 | Query- Nutrition ---
Queenie Lilly Qamar Date: 09/15/18 Cereal Maker/CDS:____Darshan/Gela Phone#:____[phone] Exercise your independent professional judgment when responding to query. Questions asked do not imply a particular answer is desired or expected. We greatly appreciate your clarification on this issue. Clinical Documentation States: 63 year old female admitted with shortness of breath and weakness , referred to ER by the water attendant after Hgb found to be 4.5.Patient was transfused with 4 units of PRBC and Hgb now is 7.7 Patient is currently on treatment for Type 2 Diabetes , Hypertension and Rheumatoid arthritis as well as chronic anemia and more recently acute on chronic renal failure with hyperkalemia . Discharge Diagnoses Type 2 diabetes mellitus without complications CKD (chronic kidney disease) Symptomatic anemia Clinical Findings Show: 09/07/18 09/09/18 Albumin 3.1 2.6 BMI 33.1 Please select the most appropriate option [] Mild Malnutrition [x] Mild - Moderate Malnutrition [] Moderate - Severe Malnutrition [] Severe Malnutrition Serum Albumin 2.8 to 3.4 g/dl or Pre-albumin 5 to 17 mg/dl1,2 Inadequate nutritional intake1,2,3,4 NPO > 5 days Weight loss: 5% in 1 month or 7.5% in 3 months or 10% in 6 months1, 3,4 BMI 16 to 18.4 or Weight <90% of ideal body weight1,2,3,4 Serum Albumin < 2.8 g/ dl1,2 Lymphocytes < 1500/ L2 Inadequate nutritional intake3, high stress e.g. major trauma, sepsis,pancreatitis, potter etc. Decubitus ulcers1,2, , skin breakdown2, easy hair pluckability2 Weight <80% standard for height2 Triceps skin fold <3 mm2 Mid-arm muscle circumference <15 cm2 Creatinine-height index <60% standard2 [ ] Cachexia [ ] Emaciated w/Malnutrition [ ] Other: [ x] Unable to determine [ ] Comment/Explanation: Present on Admission: [x ] Yes (Y) [ ] Clinically undeterminable (W) [ ] No (N) Please also document response in your Progress Notes and/or Discharge Summary and indicate if the condition was present on admission. MTDD
== END 2018-09-09 13:30 | disposition home or self-care (01) | DRG 683 ==
LOC: ED 09:48 → 3A 12:02 → OBSVTOIN 09-08 11:53
PROVIDERS: ADMIT Internal Medicine; ATTEND Internal Medicine
PROC: 30233N1 Transfusion of Nonautologous Red Blood Cells into Peripheral Vein, Percutaneous Approach (ICD-10-PCS; principal; 2018-09-07)
DX: N17.9 Acute kidney failure, unspecified (principal); E87.2 Acidosis; I13.0 Hypertensive heart and chronic kidney disease with heart failure and stage 1 through stage 4 chronic kidney disease, or unspecified chronic kidney disease; D64.9 Anemia, unspecified; E87.5 Hyperkalemia; K21.9 Gastro-esophageal reflux disease without esophagitis; J45.909 Unspecified asthma, uncomplicated; M06.9 Rheumatoid arthritis, unspecified; E11.22 Type 2 diabetes mellitus with diabetic chronic kidney disease; N18.3 Chronic kidney disease, stage 3 (moderate); Z79.82 Long term (current) use of aspirin; Z79.84 Long term (current) use of oral hypoglycemic drugs; Z88.0 Allergy status to penicillin; Z88.5 Allergy status to narcotic agent; Z91.013 Allergy to seafood; Z86.11 Personal history of tuberculosis
CPT/HCPCS: 36415; 36430; 71045; 80048; 80053; 82607; 82728; 82747; 82962; 83550; 85014; 85018; 85025; 86850; 86900; 86901; 86920; 87116; 93005; 93010; 94660; G0378; J1940; J2916; J7040; J7050; J7512; P9016

== ENCOUNTER 2018-10-07 15:23 | Inpatient (IN) | payer MEDICARE ==
--- NOTE | 2018-10-07 15:31 | Emergency Department Report ---
Blank Doc - Documentation Documentation: This is a 63-year-old female that presents for a blood transfusion. Patient was seen by PCP and told to come to the ED. This initial assessment/diagnostic orders/clinical plan/treatment(s) is/are subject to change based on patient's health status, clinical progression and re- assessment by fellow clinical providers in the ED. Further treatment and workup at subsequent clinical providers discretion. Patient/guardians urged not to elope from the ED as their condition may be serious if not clinically assessed and managed. Initial orders include: 1- Patient sent to [facility] for further evaluation and treatment 2- labs
[2018-10-07 16:16] LABS: Hemoglobin 6.2 gm/dl (10.1-14.3); Mean Corpuscular HGB Conc 33 % (30-34); Mean Corpuscular Volume 96 fl (79-97); Platelet Count 264 K/mm3 (140-440); Red Blood Count 1.96 M/mm3 (3.65-5.03); Red Cell Distribution Width 18.9 % (13.2-15.2)
[2018-10-07 16:27] LABS: Hematocrit 18.8 % (30.3-42.9)
[2018-10-07] MEDS ORDERED: NACL 0.9% 500 ML 500 ML IV ONE (16:42)
[2018-10-07 17:12] LABS: Alanine Aminotransferase 13 units/L (7-56); Albumin 3.1 g/dL (3.9-5); BUN/Creatinine Ratio 20; Blood Urea Nitrogen 44 mg/dL (7-17); Calcium 7.9 mg/dL (8.4-10.2); Hemolysis Index 4
--- NOTE | 2018-10-07 17:16 | Emergency Department Report ---
HPI - General Chief Complaint: Medical Clearance Time Seen by Provider: 10/07/18 15:29 - HPI HPI: 63-year-old female presents to the emergency department, sent in by her fish roe technician Dr. Torres, for a blood transfusion secondary to anemia. The patient has a history of anemia requiring multiple blood transfusions in the past. The patient had a bone marrow biopsy done today in the hematology office but also had some blood work that showed a hemoglobin that was less than 6. Patient says that she has a little bit of exertional fatigue but otherwise has no current physical complaints. Her primary care physician is Dr. Foote. ED Past Medical Hx - Past Medical History Hx Hypertension: Yes Hx Congestive Heart Failure: Yes Hx Diabetes: Yes Hx GERD: Yes Hx Renal Disease: Yes Hx Arthritis: Yes Hx Asthma: Yes Hx COPD: Yes Hx Tuberculosis: Yes Additional medical history: ulcers. sleep apnea. anemia - Surgical History Past Surgical History?: Yes Additional Surgical History: cataract surgery - Social History Smoking Status: Never Smoker Substance Use Type: None - Medications Home Medications: Home Medications Medication Instructions Recorded Confirmed Last Taken Type Aspirin [Aspirin BABY CHEW TAB] 81 mg PO DAILY 05/25/13 09/07/18 05/24/13 10:00 History 81mg Buspirone HCl 15 mg PO TID 05/25/13 09/07/18 05/24/13 10:00 History 15mg glipiZIDE [glipiZIDE ER] 5 mg PO BID 05/25/13 09/07/18 05/23/13 10:00 History 5mg Carvedilol [Coreg] 3.125 mg PO BID 09/07/18 09/07/18 Unknown History Cyanocobalamin (Vitamin B-12) 500 mcg PO DAILY 09/07/18 09/07/18 Unknown History [Vitamin B-12] Hydroxychloroquine [Plaquenil] 200 mg PO QDAY 09/07/18 09/07/18 Unknown History Omeprazole 40 mg PO DAILY 09/07/18 09/07/18 Unknown History predniSONE [Deltasone] 10 mg PO QDAY 09/07/18 09/07/18 Unknown History ED Review of Systems ROS: Stated complaint: ABNORMAL LABS Other details as noted in HPI Comment: All other systems reviewed and negative Constitutional: denies: chills, fever Eyes: denies: eye pain, vision change ENT: denies: ear pain, throat pain Respiratory: denies: cough, shortness of breath Cardiovascular: denies: chest pain, palpitations Gastrointestinal: denies: abdominal pain, vomiting Genitourinary: denies: urgency, dysuria Skin: denies: rash, lesions Neurological: denies: headache, weakness Physical Exam - Physical Exam Vital Signs: Vital Signs 10/07/18 15:30 Temperature 98.2 F Pulse Rate 86 Respiratory 18 Rate Blood Pressure 150/65 O2 Sat by Pulse 100 Oximetry Physical Exam: GENERAL: The patient is well-developed well-nourished. HEENT: Normocephalic. Atraumatic. Patient has moist mucous membranes. EYES: Extraocular motions are intact. Pupils are equal and reactive to light bilaterally. Pale conjunctiva. NECK: Supple. Trachea is midline. CHEST/LUNGS: Clear to auscultation. There is no respiratory distress noted. HEART/CARDIOVASCULAR: Regular. There is mild tachycardia. There is no obvious murmur. ABDOMEN: Abdomen is soft, nontender. Patient has normal bowel sounds. There is no abdominal distention. SKIN: Skin is warm and dry. NEURO: The patient is awake, alert, and oriented. The patient is cooperative. The patient has no focal neurologic deficits. The patient has normal speech. MUSCULOSKELETAL: There is no tenderness or deformity. There is no evidence of acute injury. ED Course Vital Signs 10/07/18 15:30 Temperature 98.2 F Pulse Rate 86 Respiratory 18 Rate Blood Pressure 150/65 O2 Sat by Pulse 100 Oximetry ED Medical Decision Making - Lab Data Result diagrams: 10/07/18 16:02 10/07/18 16:02 - Medical Decision Making This patient was sent in for evaluation and transfusion by her fish roe technician. Apparently she had a hemoglobin less than 6 and the office. Here today is 6.2. She has some exertional fatigue and has some mild tachycardia. These are signs and symptoms of some symptomatic anemia. I have ordered for the patient received 2 units of packed red blood cells for transfusion. The patient will be admitted to the hospital for further evaluation and treatment and was accepted for admission by her primary care physician, Dr. Foote. Dr. Chow to consult. The patient has some chronic kidney disease the patient also has hyperglycemia with a blood sugar of about 400. There is no elevation in the anion gap and she is low suspicion for diabetic ketoacidosis. She will receive some IV fluid resuscitation and IV insulin. - Differential Diagnosis iron deficiency anemia, B12 deficiency, DKA, HHNK Critical Care Time: No Critical care attestation.: If time is entered above; I have spent that time in minutes in the direct care of this critically ill patient, excluding procedure time. ED Disposition Clinical Impression: Symptomatic anemia, Anemia requiring transfusions, Hyperglycemia Hypertension Qualifiers: Hypertension type: essential hypertension Qualified Code(s): I10 - Essential (primary) hypertension CKD (chronic kidney disease) Qualifiers: Chronic kidney disease stage: unspecified stage Qualified Code(s): N18.9 - Chronic kidney disease, unspecified Disposition: 09 OP ADMIT IP TO THIS HOSP Is pt being admited?: Yes Condition: Fair Time of Disposition: 19:04
[2018-10-07 17:18] LABS: Bilirubin,Direct < 0.2 mg/dL (0-0.2)
[2018-10-07] MEDS ORDERED: HumuLIN R IV ONE (17:52)
[2018-10-07] MEDS ORDERED: HumuLIN R ONE (18:09)
[2018-10-07 19:04] LABS: Anisocytosis 1+; Basophils % (Manual) 0 % (0.0-1.8); Total Cells Counted 100
[2018-10-07 19:05] LABS: Macrocytosis 1+; Platelet Estimate Consistent w Auto
[2018-10-07] MEDS: HumaLOG SUB-Q SCH (23:31)
[2018-10-08] MEDS ORDERED: FLUSH HEPARIN IV ONE (06:57)
--- NOTE | 2018-10-08 08:35 | Event Note ---
Date: 10/08/18 [id number]
[2018-10-08] MEDS: HumaLOG SUB-Q SCH (09:38)
--- NOTE | 2018-10-08 09:42 | History and Physical Report ---
History of Present Illness Date of examination: 10/08/18 Date of admission: 10/07/18 17:16 Chief complaint: Shortness of breath with physical activity Generalized weakness History of present illness: Patient is seen and examined, 63-year-old patient of ours from the clinic was admitted via the emergency room after she was sent to the emergency room from cloth colorer's office when her hemoglobin was discovered to be less than 6. Patient has history of chronic anemia which is currently being worked up I was recently hospitalized also at the [facility] approximately 1 month ago with similar symptoms. Patient had bone marrow biopsy done in hematol ogist's office Dr. Ga today as part of the outpatient woke up for the chronic anemia. Patient also has a history of rheumatoid arthritis as well as diabetes and more recently noted to develop acute on chronic renal failure the last hospitalization patient currently being evaluated and followed up by supervisor coal handling. Patient has not been transfused with 2 units of packed red blood cells in the e mergency room and admitted for further evaluation and assessment for the need for additional transfusion prior to discharge. Subsequent follow-up with Dr. Clark ongoing workup of the chronic anemia. Patient denied chest pain but complaining of shortness of breath with physical activity on ongoing weakness and occasional dizziness. No fever reported reports that blood sugar control has been fair. Past History Past Medical History: anemia, arthritis, diabetes, renal failure Past Surgical History: cholecystectomy Social history: , lives with family Family history: CAD, diabetes, hypertension Medications and Allergies Allergies Allergy/AdvReac Type Severity Reaction Status Date / Time penicillin G Allergy Intermediate Shortness Verified 05/03/15 08:43 of Breath shellfish derived Allergy Intermediate Shortness Verified 05/03/15 08:43 of Breath hydrocodone AdvReac Headache Verified 05/06/15 06:38 Home Medications Medication Instructions Recorded Confirmed Last Taken Type Aspirin [Aspirin BABY CHEW TAB] 81 mg PO DAILY 05/25/13 09/07/18 05/24/13 10:00 History 81mg Buspirone HCl 15 mg PO TID 05/25/13 09/07/18 05/24/13 10:00 History 15mg glipiZIDE [glipiZIDE ER] 5 mg PO BID 05/25/13 09/07/18 05/23/13 10:00 History 5mg Carvedilol [Coreg] 3.125 mg PO BID 09/07/18 09/07/18 Unknown History Cyanocobalamin (Vitamin B-12) 500 mcg PO DAILY 09/07/18 09/07/18 Unknown History [Vitamin B-12] Hydroxychloroquine [Plaquenil] 200 mg PO QDAY 09/07/18 09/07/18 Unknown History Omeprazole 40 mg PO DAILY 09/07/18 09/07/18 Unknown History predniSONE [Deltasone] 10 mg PO QDAY 09/07/18 09/07/18 Unknown History Active Meds: Active Medications Insulin Human Lispro (Humalog) 0 unit SUB-Q [facility]; Protocol Last Admin: 10/07/18 23:31 Dose: 10 unit Documented by: Review of Systems Constitutional: fatigue, weakness Eyes: bilateral: blurred vision Cardiovascular: lightheadedness, shortness of breath, dyspnea on exertion, high blood pressure, decreased exercise tolerance Respiratory: shortness of breath, dyspnea on exertion Exam - Physical Exam Narrative exam: GENERAL: Patient is not in any acute distress moderately pale but not jaundiced, obese HEENT: Head examination showed normocephalic. Patient is not pale, not jaundiced, and not cyanosed. Mucous membrane is moist, pharynx is clear, no exudates or hemorrhage. Dentition is normal. NECK: Supple. Neck showed good range of motion. There is no adenopathy noted. No jugular venous distention and no thyromegaly. Neck auscultation showed no carotid bruit. CHEST/LUNGS: Good air exchange bilaterally. Clear to auscultation. There is no respiratory distress noted. Chest percussion normal, symmetrical chest movements with no chest wall tenderness. HEART/CARDIOVASCULAR: No murmur. Regular rate and rhythm. S1 and S2 only, no S3 gallop, no S4. ABDOMEN: Abdomen is soft, nontender. Patient has normal bowel sounds. There is no abdominal distention. Liver and spleen not palpably enlarged. SKIN: There is no rash. There is no edema. There is no diaphoresis. NEURO: The patient is awake, alert, and oriented. The patient is cooperative. The patient has no focal neurologic deficits. Cranial nerves 2-12 grossly normal, power is 5/5 in all the extremities tested. The patient has normal speech and gait. MUSCULOSKELETAL: There is no tenderness or deformity. There is no limitation range of motion. There is no evidence of acute injury. EXTREMITIES: No pedal edema, no varicose veins, good peripheral pulses symmetrical and bilaterally, no pretibial edema, no finger or toe clubbing. - Constitutional Vitals: Temp Pulse Resp BP Pulse Ox 98.1 F 78 18 130/77 100 10/08/18 05:49 10/08/18 05:49 10/08/18 05:49 10/08/18 05:49 10/08/18 05:49 Results - Labs CBC & Chem 7: 10/07/18 16:02 10/07/18 16:02 Labs: Abnormal lab results 10/07/18 10/07/18 10/07/18 Range/Units 16:02 16:02 16:02 RBC 1.96 L (3.65-5.03) M/mm3 Hgb 6.2 L (10.1-14.3) gm/dl Hct 18.8 L* (30.3-42.9) % RDW 18.9 H (13.2-15.2) % Seg Neuts % (Manual) 89.0 H (40.0-70.0) % Lymphocytes % (Manual) 9.0 L (13.4-35.0) % Lymphocytes # (Manual) 0.7 L (1.2-5.4) K/mm3 Sodium 133 L (137-145) mmol/L Carbon Dioxide 20 L (22-30) mmol/L BUN 44 H (7-17) mg/dL Creatinine 2.2 H (0.7-1.2) mg/dL Glucose 413 H (65-100) mg/dL POC Glucose (70-105) Calcium 7.9 L (8.4-10.2) mg/dL Lactate Dehydrogenase (91-180) units/L Albumin 3.1 L (3.9-5) g/dL Crossmatch See Detail 10/07/18 10/08/18 10/08/18 Range/Units 20:54 07:28 07:54 RBC (3.65-5.03) M/mm3 Hgb (10.1-14.3) gm/dl Hct (30.3-42.9) % RDW (13.2-15.2) % Seg Neuts % (Manual) (40.0-70.0) % Lymphocytes % (Manual) (13.4-35.0) % Lymphocytes # (Manual) (1.2-5.4) K/mm3 Sodium (137-145) mmol/L Carbon Dioxide (22-30) mmol/L BUN (7-17) mg/dL Creatinine (0.7-1.2) mg/dL Glucose (65-100) mg/dL POC Glucose 360 H 134 H (70-105) Calcium (8.4-10.2) mg/dL Lactate Dehydrogenase 185 H (91-180) units/L Albumin (3.9-5) g/dL Crossmatch Assessment and Plan - Patient Problems (1) Anemia requiring transfusions Current Visit: Yes Status: Acute Plan to address problem: Patient received 2 units of packed red blood cells in the emergency room, post transfusion hemoglobin level is being completed. We'll transfuse patient if any need for additional PRBC for hemoglobin is less than 7 (2) Hypertension Current Visit: Yes Status: Acute Qualifiers: Hypertension type: essential hypertension Qualified Code(s): I10 - Essential (primary) hypertension Plan to address problem: Blood pressure control on current medication will continue same regimen (3) CKD (chronic kidney disease) Current Visit: Yes Status: Chronic Qualifiers: Chronic kidney disease stage: unspecified stage Qualified Code(s): N18.9 - Chronic kidney disease, unspecified Plan to address problem: Ongoing follow-up with nephrology C significant change in BUN and creatinine from recent hospitalization (4) Essential (primary) hypertension Current Visit: No Status: Chronic (5) Rheumatoid arthritis Current Visit: No Status: Chronic Plan to address problem: Patient currently on medication including Plaquenil
--- NOTE | 2018-10-08 10:02 | Discharge Summary ---
Providers - Providers Date of Admission: 10/07/18 17:16 Date of discharge: 10/08/18 Attending physician: CATY ARMENTA 10/07/18 19:04 Consult to Physician [CONS] Routine Comment: Consulting Provider: DEDE GA Physician Instructions: Reason For Exam: anemia Primary care physician: CATY ARMENTA Hospitalization Reason for admission: weakness, shortness of breath, low hemoglobin Condition: Fair Pertinent studies: CBC with the, CMP Hospital course: 63-year-old female admitted to the emergency room after being transferred from retail advertising executive's office when her hemoglobin was noted to be less than 6. Patient has ongoing management for chronic anemia as well as acute on chronic renal failure and has been having ongoing shortness of breath with physical activity. Hemoglobin on admission was noted to be 6.2 Patient had bone marrow biopsy performed in the retail advertising executive's office yesterday and incidentally hemoglobin was V less than 6% was therefore referred to the hospital for packed red blood cell transfusion. Patient feels better post transfusion and chest pain no shortness of breath no fever stated that she feels stronger. Processes now assessed to be stable enough for discharge to follow up with retail advertising executive Dr. Ga for continuation of ongoing workup as outpatient of chronic anemia Disposition: DC-30 STILL A PATIENT - Discharge Diagnoses (1) Anemia requiring transfusions Status: Acute (2) Hypertension Status: Acute Qualifiers: Hypertension type: essential hypertension Qualified Code(s): I10 - Essential (primary) hypertension (3) CKD (chronic kidney disease) Status: Chronic Qualifiers: Chronic kidney disease stage: unspecified stage Qualified Code(s): N18.9 - Chronic kidney disease, unspecified (4) Essential (primary) hypertension Status: Chronic (5) Rheumatoid arthritis Status: Chronic Core Measure Documentation - Palliative Care Palliative Care/ Comfort Measures: Not Applicable - Core Measures Any of the following diagnoses?: none Exam - Physical Exam Narrative exam: GENERAL: Patient is not in any acute distress moderately pale but not jaundiced, obese HEENT: Head examination showed normocephalic. Patient is not pale, not jaundiced, and not cyanosed. Mucous membrane is moist, pharynx is clear, no exudates or hemorrhage. Dentition is normal. NECK: Supple. Neck showed good range of motion. There is no adenopathy noted. No jugular venous distention and no thyromegaly. Neck auscultation showed no carotid bruit. CHEST/LUNGS: Good air exchange bilaterally. Clear to auscultation. There is no respiratory distress noted. Chest percussion normal, symmetrical chest movements with no chest wall tenderness. HEART/CARDIOVASCULAR: No murmur. Regular rate and rhythm. S1 and S2 only, no S3 gallop, no S4. ABDOMEN: Abdomen is soft, nontender. Patient has normal bowel sounds. There is no abdominal distention. Liver and spleen not palpably enlarged. SKIN: There is no rash. There is no edema. There is no diaphoresis. NEURO: The patient is awake, alert, and oriented. The patient is cooperative. The patient has no focal neurologic deficits. Cranial nerves 2-12 grossly normal, power is 5/5 in all the extremities tested. The patient has normal speech and gait. MUSCULOSKELETAL: There is no tenderness or deformity. There is no limitation range of motion. There is no evidence of acute injury. EXTREMITIES: No pedal edema, no varicose veins, good peripheral pulses symmetrical and bilaterally, no pretibial edema, no finger or toe clubbing. - Constitutional Vitals: Temp Pulse Resp BP Pulse Ox 98.1 F 78 18 130/77 100 10/08/18 05:49 10/08/18 05:49 10/08/18 05:49 10/08/18 05:49 10/08/18 05:49 Plan Activity: no restrictions Weight Bearing Status: Full Weight Bearing Diet: low salt, low carbohydrate Follow up with: CATY ARMENTA MD [Primary Care Provider] - 7 Days DDEE GA MD [Staff Physician] - 7 Days
[2018-10-08 10:57] LABS: Basophils % (Auto) 0.2 % (0.0-1.8); Eosinophils # (Auto) 0.1 K/mm3 (0.0-0.4); Eosinophils % (Auto) 1.1 % (0.0-4.3); Hematocrit 25.7 % (30.3-42.9); Hemoglobin 8.5 gm/dl (10.1-14.3); Lymphocytes # (Auto) 0.8 K/mm3 (1.2-5.4); Lymphocytes % (Auto) 12.3 % (13.4-35.0); Mean Corpuscular HGB Conc 33 % (30-34); Mean Corpuscular Volume 95 fl (79-97); Monocytes # (Auto) 0.4 K/mm3 (0.0-0.8); Monocytes % (Auto) 6.1 % (0.0-7.3); Platelet Count 233 K/mm3 (140-440); Red Blood Count 2.71 M/mm3 (3.65-5.03); Red Cell Distribution Width 17.3 % (13.2-15.2)
[2018-10-08 11:53] VITALS: BP 149/72
[2018-10-08] MEDS ORDERED: BUSPIRONE HCL 15 MG PO SCH (14:00)
[2018-10-08] MEDS ORDERED: BUSPAR PO SCH (14:00)
[2018-10-08] MEDS ORDERED: PROTONIX PO SCH (16:00)
--- NOTE | 2018-10-08 16:27 | Consultation ---
REFERRING PHYSICIAN: Jade Foote MD REASON FOR CONSULTATION: Anemia. HISTORY OF PRESENT ILLNESS: I saw the patient, a 63-year-old female in the medical floor. The patient has been having recurrent anemia. She has history of dermatomyositis, hypertension, diabetes, renal insufficiency, sleep apnea, polyclonal gammopathy. She has been having multiple episodes of low hemoglobin. She has had EGD and colonoscopy the patient says within the last 2 months, and she was told that there is no bleeding. The patient received IV iron. Iron studies were low. B12, folate was normal in the recent past. She also has mentions of Melissa positive, but there was no significant hemolysis. Her LDH and reticulocytes were normal in the past. Bilirubin is not elevated. At this time, the patient is complaining of no hematemesis, no hematochezia, no vomiting, no diarrhea, no abdominal pain, no chest pain, no headache, no seizures, no nosebleeds. The patient underwent bone marrow biopsy yesterday in the clinic. As the hemoglobin was low, she was sent to hospital. 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 The patient received IV iron in the clinic. The patient was recently admitted at [facility] and received transfusion support at that time. Today this admission also, she received transfusion support. ALLERGIES: PENICILLIN AND HYDROCODONE. MEDICATIONS: Include insulin. SURGICAL HISTORY: Cataract surgery. SOCIAL HISTORY: Nonsmoker, recently started a new job. FAMILY HISTORY: Noncontributory. PHYSICAL EXAMINATION: VITAL SIGNS: Temperature 98, pulse 78, respirations 18, BP 130/77. HEENT: Pallor present, no icterus. NECK: No neck lymph nodes. HEART: S1, S2. LUNGS: Clear to auscultation. ABDOMEN: Soft. EXTREMITIES: No calf tenderness. NEUROLOGIC: Alert, awake, oriented. LABORATORY DATA: White cell 7, hemoglobin 6.2, MCV 96, platelet 264. Potassium 4.6, creatinine 2.2, calcium 7.9. Radiology not done during this admission. ASSESSMENT AND PLAN: 1. Anemia. MCV is not low. In the past, serum iron was low at 17. Ferritin was lower at 25. B12 was 355, folate was low at 6. LDH was not elevated. Bilirubin was not elevated. Chest x-ray was done in August. For the anemia, IV iron has been given. The patient was on aspirin. This has been stopped. 2. History of diabetes. 3. History of hypertension. 4. History of sleep apnea. 5. Chronic kidney disease. 6. Mention of Melissa positive disease; however, LDH was not elevated. We have ordered haptoglobin. 7. For RBC nuclear scan, for bleeding study was planned, but the patient wants to go home as she needs to continue to work. She prefers outpatient investigation. We will look into the same. JOB# [id number] NM/NTS
[2018-10-08] MEDS ORDERED: COREG PO SCH (22:00)
[2018-10-09] MEDS ORDERED: PLAQUENIL PO SCH (10:00)
[2018-10-09] MEDS ORDERED: DELTASONE PO SCH (10:00)
[2018-10-09] MEDS ORDERED: NON-FORMULARY (Omeprazole [Omeprazole] 40 MG) PO SCH (10:00)
== END 2018-10-08 14:00 | disposition home or self-care (01) | DRG 812 ==
LOC: ED 15:23 → 3A 17:16
PROVIDERS: ADMIT Internal Medicine; ATTEND Internal Medicine
PROC: 30233N1 Transfusion of Nonautologous Red Blood Cells into Peripheral Vein, Percutaneous Approach (ICD-10-PCS; principal; 2018-10-08)
DX: D64.9 Anemia, unspecified (principal); I13.0 Hypertensive heart and chronic kidney disease with heart failure and stage 1 through stage 4 chronic kidney disease, or unspecified chronic kidney disease; I50.9 Heart failure, unspecified; K21.9 Gastro-esophageal reflux disease without esophagitis; M19.90 Unspecified osteoarthritis, unspecified site; J44.9 Chronic obstructive pulmonary disease, unspecified; E11.65 Type 2 diabetes mellitus with hyperglycemia; N18.9 Chronic kidney disease, unspecified; E11.22 Type 2 diabetes mellitus with diabetic chronic kidney disease; M06.9 Rheumatoid arthritis, unspecified; Z98.41 Cataract extraction status, right eye; Z98.42 Cataract extraction status, left eye; Z79.84 Long term (current) use of oral hypoglycemic drugs; Z90.49 Acquired absence of other specified parts of digestive tract; Z88.8 Allergy status to other drugs, medicaments and biological substances; Z88.0 Allergy status to penicillin; Z91.013 Allergy to seafood
CPT/HCPCS: 36415; 80048; 80076; 82962; 83615; 85007; 85025; 86850; 86880; 86900; 86901; 86920; G0378; J1642; J1815; J7040; P9016

== ENCOUNTER 2019-05-18 08:17 | Emergency (ER) | payer MEDICARE ==
[2019-05-18] MEDS ORDERED: OXYMETAZOLINE 0.05% NASAL SPRAY NS ONE (08:31)
--- NOTE | 2019-05-18 08:40 | Emergency Department Report ---
ED General Adult HPI - General Chief complaint: Nosebleed Stated complaint: BLEEDING FROM NOSE AND MOUTH Time Seen by Provider: 05/18/19 08:30 Source: patient, family Mode of arrival: Wheelchair Limitations: No Limitations - History of Present Illness Initial comments: 63 yo AA female come in with nose bleed that started this AM. She denies trauma or picking her nose. The patient comes to the ER via EMS with bleeding controlled. Patient states that she has been on blood thinners in the past but was removed due to her thin blood and because she already has underlying anemia. Patient denies even taking aspirin at this point in time. Vital signs are stable on admission. She is not hypertensive. Patient denies any other symptoms. She denies any other bleeding area and she has not noted any vaginal bleeding or blood in her urine. She has had no nausea or vomiting. She has had no dark or bloody stools. Patient's primary care doctor is Dr. Jalloh Steward/Stewardess Second is Ashley Decker Home medications Iron sulfate Prednisone Coreg Lasix Pepcid Omeprazole Potassium Sertraline PMH RA cardiac stent iron def. anemia CKD HTN HPLD GERD depression/anxiety obesity -: Sudden Improves with: none Worsens with: none Associated Symptoms: denies other symptoms Treatments Prior to Arrival: none - Related Data Home Medications Medication Instructions Recorded Confirmed Last Taken Buspirone HCl 15 mg PO TID 05/25/13 09/07/18 05/24/13 10:00 15 mg glipiZIDE [glipiZIDE ER] 5 mg PO BID 05/25/13 09/07/18 05/23/13 10:00 5 mg Carvedilol [Coreg] 3.125 mg PO BID 09/07/18 09/07/18 Unknown Cyanocobalamin (Vitamin B-12) 500 mcg PO DAILY 09/07/18 09/07/18 Unknown [Vitamin B-12] Omeprazole 40 mg PO DAILY 09/07/18 09/07/18 Unknown predniSONE [Deltasone] 10 mg PO QDAY 09/07/18 09/07/18 Unknown Allergies Allergy/AdvReac Type Severity Reaction Status Date / Time penicillin G Allergy Intermediate Shortness Verified 05/03/15 08:43 of Breath shellfish derived Allergy Intermediate Shortness Verified 05/03/15 08:43 of Breath hydrocodone AdvReac Headache Verified 05/06/15 06:38 ED Review of Systems ROS: Stated complaint: BLEEDING FROM NOSE AND MOUTH Other details as noted in HPI Comment: All other systems reviewed and negative ED Past Medical Hx - Past Medical History Previous Medical History?: Yes Hx Hypertension: Yes Hx Congestive Heart Failure: Yes Hx Diabetes: Yes Hx Deep Vein Thrombosis: No Hx Pulmonary Embolism: No Hx GERD: Yes Hx Liver Disease: No Hx Renal Disease: Yes Hx Arthritis: Yes Hx Asthma: Yes Hx COPD: Yes Hx Tuberculosis: Yes Additional medical history: ulcers. sleep apnea. anemia - Surgical History Past Surgical History?: Yes Additional Surgical History: cataract surgery - Family History Family history: no significant - Social History Smoking Status: Never Smoker Substance Use Type: None - Medications Home Medications: Home Medications Medication Instructions Recorded Confirmed Last Taken Type Buspirone HCl 15 mg PO TID 05/25/13 09/07/18 05/24/13 10:00 History 15 mg glipiZIDE [glipiZIDE ER] 5 mg PO BID 05/25/13 09/07/18 05/23/13 10:00 History 5 mg Carvedilol [Coreg] 3.125 mg PO BID 09/07/18 09/07/18 Unknown History Cyanocobalamin (Vitamin B-12) 500 mcg PO DAILY 09/07/18 09/07/18 Unknown History [Vitamin B-12] Omeprazole 40 mg PO DAILY 09/07/18 09/07/18 Unknown History predniSONE [Deltasone] 10 mg PO QDAY 09/07/18 09/07/18 Unknown History ED Physical Exam - General Limitations: No Limitations General appearance: alert, in no apparent distress - Head Head exam: Present: atraumatic, normocephalic - Eye Eye exam: Present: normal appearance - ENT ENT exam: Present: mucous membranes moist - Expanded ENT Exam Expanded Mouth exam: Present: normal external inspection Teeth exam: Present: normal inspection Throat exam: Positive: normal inspection. Negative: tonsillar erythema, tonsillomegaly, tonsillar exudate, R peritonsillar mass, L peritonsillar mass - Neck Neck exam: Present: normal inspection - Respiratory Respiratory exam: Present: normal lung sounds bilaterally. Absent: respiratory distress - Cardiovascular Cardiovascular Exam: Present: regular rate, normal rhythm. Absent: systolic murmur, diastolic murmur, rubs, gallop - GI/Abdominal GI/Abdominal exam: Present: soft, normal bowel sounds - Extremities Exam Extremities exam: Present: normal inspection - Back Exam Back exam: Present: normal inspection - Neurological Exam Neurological exam: Present: alert, oriented X3 - Psychiatric Psychiatric exam: Present: normal affect, normal mood - Skin Skin exam: Present: warm, dry, intact, normal color. Absent: rash ED Course Vital Signs 05/18/19 05/18/19 05/18/19 08:24 08:51 10:44 Temperature 97.6 F Pulse Rate 101 H 98 H 86 Respiratory 18 16 16 Rate Blood Pressure 182/74 Blood Pressure 174/87 169/84 [Left] O2 Sat by Pulse 93 100 100 Oximetry 05/18/19 11:45 Temperature Pulse Rate 72 Respiratory 16 Rate Blood Pressure Blood Pressure 151/73 [Left] O2 Sat by Pulse 100 Oximetry - Reevaluation(s) Reevaluation #2: 05/18/19 11:44 bleeding controlled dc home with family ED Medical Decision Making - Lab Data Result diagrams: 05/18/19 09:12 05/18/19 09:12 - Medical Decision Making Lab Results 05/18/19 05/18/19 05/18/19 Range/Units 09:12 09:12 09:12 WBC 8.5 (4.5-11.0) K/mm3 RBC 2.91 L (3.65-5.03) M/mm3 Hgb 7.8 L (10.1-14.3) gm/dl Hct 25.4 L (30.3-42.9) % MCV 87 (79-97) fl MCH 27 L (28-32) pg MCHC 31 (30-34) % RDW 17.7 H (13.2-15.2) % Plt Count 270 (140-440) K/mm3 Lymph % (Auto) [employer] [place] % (Auto) [employer] Eos % (Auto) [employer] Baso % (Auto) [employer] Lymph # [employer] [place] # [employer] Eos # [employer] Baso # [employer] Seg Neutrophils % [employer] Seg Neutrophils # [employer] PT 12.9 (12.2-14.9) Sec. INR 0.98 (0.87-1.13) APTT 27.4 (24.2-36.6) Sec. Sodium 139 (137-145) mmol/L Potassium 4.7 (3.6-5.0) mmol/L Chloride 109.8 H (98-107) mmol/L Carbon Dioxide 19 L (22-30) mmol/L Anion Gap 15 mmol/L BUN 43 H (7-17) mg/dL Creatinine 2.1 H (0.7-1.2) mg/dL Estimated GFR 29 ml/min BUN/Creatinine Ratio 20 % Glucose 133 H (65-100) mg/dL Calcium 8.3 L (8.4-10.2) mg/dL Total Bilirubin 0.30 (0.1-1.2) mg/dL AST 18 (5-40) units/L ALT 12 (7-56) units/L Alkaline Phosphatase 77 (35-129) units/L Total Protein 8.4 H (6.3-8.2) g/dL Albumin 3.1 L (3.9-5) g/dL Albumin/Globulin Ratio 0.6 % Vital Signs 05/18/19 05/18/19 05/18/19 08:24 08:51 10:44 Temperature 97.6 F Pulse Rate 101 H 98 H 86 Respiratory 18 16 16 Rate Blood Pressure 182/74 Blood Pressure 174/87 169/84 [Left] O2 Sat by Pulse 93 100 100 Oximetry right nares nose bleed this AM on NO thinners pressure/ice/packing stopped bleeding however, when pt moved around it would bleeding temp. rhinorocket but pt would not leave it in- so removed pt monitored for over 2 hours in ER no further bleeding labs noted note- a/c anemia. blood counts normal for her plt and coags normal no cp no sob no hypotension/tachycardia dc home with dc plan of care and pcp follow up - Differential Diagnosis nose bleed ant v post ro coagulopathy Critical care attestation.: If time is entered above; I have spent that time in minutes in the direct care of this critically ill patient, excluding procedure time. ED Disposition Clinical Impression: Bleeding nose, Chronic anemia, Type 2 diabetes mellitus without complications, CKD (chronic kidney disease) Disposition: DC-01 TO HOME OR SELFCARE Is pt being admited?: No Does the pt Need Aspirin: No Condition: Stable Additional Instructions: NOSE BLEED CARE WE DISCUSSED FOLLOW UP WITH PCP IN AM FOR REEVAL NO MOTRIN OR ASPIRIN CONTAINING PRODUCTS TODAY SIT UP TO SLEEP TODAY ICE AND PRESSURE TO NOSE FOR BLEEDING CONTINUE HOME MEDS Referrals: PRIMARY CARE, [Primary Care Provider] - 3-5 Days Time of Disposition: 11:34
[2019-05-18 09:43] LABS: Hematocrit 25.4 % (30.3-42.9); Hemoglobin 7.8 gm/dl (10.1-14.3); Mean Corpuscular HGB Conc 31 % (30-34); Mean Corpuscular Volume 87 fl (79-97); Platelet Count 270 K/mm3 (140-440); Red Blood Count 2.91 M/mm3 (3.65-5.03); Red Cell Distribution Width 17.7 % (13.2-15.2)
[2019-05-18 09:50] LABS: Albumin 3.1 g/dL (3.9-5); Calcium 8.3 mg/dL (8.4-10.2)
[2019-05-18 10:10] LABS: INR 0.98 (0.87-1.13)
[2019-05-18 10:11] LABS: Partial Thromboplastin Time 27.4 Sec. (24.2-36.6)
[2019-05-18 12:25] VITALS: BP 151/73
== END 2019-05-18 11:45 | disposition home or self-care (01) ==
LOC: ED 08:17
DX: I13.0 Hypertensive heart and chronic kidney disease with heart failure and stage 1 through stage 4 chronic kidney disease, or unspecified chronic kidney disease (principal); R04.0 Epistaxis; E11.22 Type 2 diabetes mellitus with diabetic chronic kidney disease; N18.9 Chronic kidney disease, unspecified; I50.9 Heart failure, unspecified; D63.1 Anemia in chronic kidney disease; K21.9 Gastro-esophageal reflux disease without esophagitis; J44.9 Chronic obstructive pulmonary disease, unspecified; M06.9 Rheumatoid arthritis, unspecified; G47.30 Sleep apnea, unspecified; E78.5 Hyperlipidemia, unspecified; F32.9 Major depressive disorder, single episode, unspecified; F41.9 Anxiety disorder, unspecified; E66.9 Obesity, unspecified; Z68.32 Body mass index [BMI] 32.0-32.9, adult; Z79.899 Other long term (current) drug therapy; Z88.0 Allergy status to penicillin; Z91.013 Allergy to seafood; Z88.5 Allergy status to narcotic agent
CPT/HCPCS: 36415; 80053; 85025; 85610; 85730; 99283